=== PATIENT | male | born 1955 | race Caucasian/White ===

== ENCOUNTER 2018-01-29 20:40 | Emergency (ER) | payer MEDICARE, MEDICAID ==
[~2018-01-29] VITALS: Ht 177.8 cm; Wt 127.0 kg
[2018-01-29 20:45] VITALS: BP 104/61
[2018-01-29] MEDS ORDERED: Ketorolac 30mg Inj IM ONE (21:15)
[2018-01-29] MEDS ORDERED: Methocarbamol 750mg tab ORAL ONE (21:15)
[2018-01-29 21:30] VITALS: BP 106/61
[2018-01-29] MEDS ORDERED: ROBAXIN-750750 MG PO (21:30)
[2018-01-29] MEDS ORDERED: TYLENOL EXTRA500 MG ORAL (21:30)
[2018-01-29] MEDS ORDERED: Acetaminophen 500mg (ES) tab ORAL ONE (21:30)
--- NOTE | 2018-01-30 04:12 | Emergency Room Report ---
History of Present Illness General Chief Complaint: Pain Source: Patient Present Illness HPI 63-year-old male presents ED complaining of back pain. Started 2 days ago. Denies any recent injury. getting progressively worse. Notes pain radiating down the left leg. 6 out of 10, dull. Denies any abdominal pain. Denies any chest pain or shortness of breath. Denies any bowel or bladder incontinence. Denies any leg or motor weakness. No other aggravating relieving factors. Denies any other associated symptoms Allergies: Coded Allergies: No Known Allergies (Unverified , 01/29/18) Patient History Past Medical History: HTN Past Surgical History: none Pertinent Family History: none Social History: Denies: smoking, alcohol use, drug use Immunizations: UTD Reviewed Nursing Documentation: PMH: Agreed; PSxH: Agreed Nursing Documentation-PMH Hx Cardiac Problems: Yes Hx Hypertension: Yes Review of Systems All Other Systems: negative except mentioned in HPI Physical Exam Vital Signs Date Time Temp Pulse Resp B/P (MAP) Pulse Ox O2 Delivery O2 Flow Rate FiO2 01/29/18 20:34 98.1 82 16 96 Room Air 98.1 01/29/18 20:45 104/61 Sp02 EP Interpretation: reviewed, normal General Appearance: no apparent distress, alert, GCS 15, non-toxic Head: normocephalic Eyes: bilateral eye normal inspection, bilateral eye PERRL ENT: normal ENT inspection Neck: normal inspection Respiratory: chest non-tender, lungs clear, normal breath sounds, speaking full sentences Cardiovascular #1: regular rate, rhythm, no edema Gastrointestinal: normal inspection Rectal: deferred Genitourinary: no CVA tenderness, no vertebral tenderness Musculoskeletal: tender - paraspinal lumbar tenderness Neurologic: alert, oriented x3, responsive, motor strength/tone normal, sensory intact, speech normal Psychiatric: normal inspection Skin: normal inspection Lymphatic: normal inspection Medical Decision Making Diagnostic Impression: Primary Impression: Back pain Qualified Codes: M54.42 - Lumbago with sciatica, left side ER Course Hospital Course 63-year-old male presents ED complaining of lower back pain. No evidence of trauma Differential diagnoses include: pyelonephritis, kidney stone, muscle strain, Lspine fracture Clinical course Patient placed on stretcher. After initial history and physical I ordered Tylenol and Robaxin for pain. Upon reassessment patient states pain has improved. Patient requests a cane and is ambulating without difficulty Diagnosis - back pain Stable and discharged to home with prescription for Tylenol, Robaxin. Followup with PMD. Return to ED if symptoms recur or worsen Last Vital Signs Date Time Temp Pulse Resp B/P (MAP) Pulse Ox O2 Delivery O2 Flow Rate FiO2 01/29/18 21:30 82 16 106/61 96 Room Air 01/29/18 20:45 98.1 98.1 Status: improved Disposition: HOME, SELF-CARE Condition: Stable Scripts Methocarbamol* (ROBAXIN-750*) 750 Mg Tablet 750 MG PO TID, #21 TAB 0 Refills Prov: Tien Quintero MD 01/29/18 Acetaminophen* (TYLENOL EXTRA STRENGTH*) 500 Mg Tablet 500 MG ORAL Q8H PRN for Prn Headache/Temp > 101, #30 TAB 0 Refills Prov: Tien Quintero MD 01/29/18 Referrals: NOT CHOSEN IPA/,REFERRING (PCP) Patient Instructions: Back Pain, Adult, [id number] Tien Quintero MD Jan 30, 2018 04:12
== END 2018-01-29 21:30 | disposition home or self-care (01) ==
LOC: EDBD 20:40 → EMR 21:05
DX: M54.42 Lumbago with sciatica, left side (principal); I10 Essential (primary) hypertension
CPT/HCPCS: 96372; 99284; J1885